=== PATIENT | female | born 1995 | race Caucasian/White ===

== ENCOUNTER → 2019-10-06 14:20 | Outpatient (CLI) | payer OTHER, SELFPAY ==
[2019-10-06 15:50] LABS: Hemoglobin 11.5 g/dL (12.0-16.0)
[2019-10-06 16:05] LABS: GTT (PREG) 1 Hour PP 50gm Dose 124 mg/dL (76-139)
[2019-10-06 16:35] LABS: Thyroid Stimulating Hormone 0.463 uIU/mL (0.47-4.68)
== END ==
PROVIDERS: Referring Provider Family Medicine; Visit Provider Family Medicine
DX: Z34.82 Encounter for supervision of other normal pregnancy, second trimester (principal); Z3A.27 27 weeks gestation of pregnancy
CPT/HCPCS: 36415; 82950; 84443; 85014; 85018

== ENCOUNTER → 2019-12-09 13:43 | Outpatient (CLI) | payer OTHER, SELFPAY | PROVIDERS: Visit Provider Family Medicine | DX: Z34.91 Encounter for supervision of normal pregnancy, unspecified, first trimester (principal); Z3A.36 36 weeks gestation of pregnancy | CPT/HCPCS: 87081 ==

== ENCOUNTER 2020-01-07 20:09 | Inpatient (IN) | payer OTHER, SELFPAY ==
[2020-01-07 23:04] LABS: Add Manual Diff / Slide Review NO; Basophils Absolute Auto 100 /uL (0-100); Basophils Percent Auto 0.6 % (0-2); Eosinophils Absolute Auto 100 /uL (0-450); Eosinophils Percent Auto 0.5 % (2-4); Hematocrit 34.9 % (36-46); Hemoglobin 11.5 g/dL (12.0-16.0); Lymphocytes Absolute Auto 2100 /uL (1100-4500); Lymphocytes Percent Auto 18.2 % (25-40); Mean Corpuscular Volume 84.9 fL (80-100); Monocytes Absolute Auto 600 /uL (0-900); Monocytes Percent Auto 5.4 % (3-14); Neutrophils Absolute Auto 8600 /uL (1500-7000); Neutrophils Percent Auto 75.3 % (50-75); Platelet Count 205 X10^3/uL (150-400); Red Blood Cell Count 4.11 X10^6/uL (4.0-5.2); Red Cell Distribution Width 15.5 % (11.6-14.8); White Blood Cell Count 11.4 X10^3/uL (4.5-11.0)
[2020-01-07 23:24] VITALS: BP 129/60
[2020-01-07 23:45] LABS: COVID19 -Nasal RAPID Negative (Negative)
--- NOTE | 2020-01-08 06:28 | PM.OBHP.1 ---
OB HPI History of Present Condition Chief complaint: NST Narrative: Stephie Lindsay is a 24 year old female G2 para 0 with an estimated due date of 01/04/2020 consistent with LMP in order ultrasound she is now 40 weeks and 4 days gestational age she presented to the center last evening in labor. She was tai regularly uncomfortable 2-3 cm -3 station an 80% effaced. She was admitted to the center for ongoing labor. Before she came into the center she had no fevers chills nausea or vomiting. Patient had no difficulty with loss of fluid rupture membranes bleeding or spotting. Patient excited for . On admission to the center vital signs are stable afebrile and heart tones are category 1. care patient was a late transfer of care at 27 weeks. complications of obesity during with acute weight gain of approximately 25 lb. Patient with a history of infertility with use of Clomid. Patient history of abnormal Pap smear with the normal colposcopy LONNIE 1. labs white blood cell count 11.4 hemoglobin 11.5 34.9 rubella immune TSH within normal limits GC chlamydia negative HIV negative hepatitis-B negative records reviewed for blood work as they were not done at this hospital. Based on medical records they were all reportedly normal. Blood type O-positive antibody screen negative covert negative. Normal 20 week ultrasound. Evaluation Evaluation Laboratory results: Laboratory Tests 01/07/20 01/07/20 01/07/20 22:00 22:00 22:30 WBC 11.4 H RBC 4.11 Hgb 11.5 L Hct 34.9 L MCV 84.9 MCH 28.0 MCHC 33.0 RDW 15.5 H Plt Count 205 Neut % (Auto) 75.3 H Lymph % (Auto) 18.2 L Cross % (Auto) 5.4 Eos % (Auto) 0.5 L Baso % (Auto) 0.6 Neut # (Auto) 8600 H Lymph # (Auto) 2100 Cross # (Auto) 600 Eos # (Auto) 100 Baso # (Auto) 100 COVID-19 PCR Negative Blood Type O Positive Antibody Screen Negative [facility] Medical History Abnormal Pap smear of cervix (Acute ~2019) Blighted ovum (Acute ~2018) Headache (Chronic ~2006) Heavy menstrual period (Chronic ~2016) Infertility associated with anovulation (Acute ~2016) Irregular menstrual cycle (Chronic ~2016) LGSIL (low grade squamous intraepithelial dysplasia) (Acute) Migraine with aura (Acute ~2013) Obesity (Acute) Wears glasses (Chronic) Surgical History Anesthesia (Resolved) H/O wisdom tooth extraction (Acute ~09/2012) History of colposcopy (Acute ~07/09/19) Family History Mother Diabetes mellitus Hypertension Anxiety Kidney stones Father No problems noted. 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)) occupational status: unemployed current occupational exposures/hazards: No Previous occupational history: Childcare Provider/Preschool and [employer] special live needs: No Smoking Status: Never smoker second hand exposure: No alcohol intake: former (pre-) substance use type: does not use Meds Home Medications and Allergies Home Medications Medication Instructions Recorded Confirmed Type prenat.vits,tonie,vas-juob-qmrzg 1 tab PO DAILY 09/29/19 01/07/20 History Allergies Allergy/AdvReac Type Severity Reaction Status Date / Time No Known Drug Allergies Allergy Verified 01/06/20 14:37 Exam Vital Signs (past 8 hours): - 01/07/20 23:24 Blood Pressure 129/60 Narrative Exam Narrative: . General: Alert no apparent distress. Affect is appropriate. Tai it is uncomfortable. HEENT: Neck is supple without lymphadenopathy pupils equal round and reactive. Cardio: S1-S2 regular rate and rhythm. Respiratory: Lungs clear to auscultation. Abdomen: Gravid. Extremities: Normal deep tendon reflexes trace edema. [place]: Tai regularly every 3-5 minutes with 60 minute contractions moderate and strength. heart tones: Category 1 tracing baby at times difficult to monitor due to mother's size Objective Labs Result Diagrams: 01/07/20 22:00 Labs: Laboratory Results - last 24 hr 01/07/20 01/07/20 01/07/20 22:00 22:00 22:30 WBC 11.4 H RBC 4.11 Hgb 11.5 L Hct 34.9 L MCV 84.9 MCH 28.0 MCHC 33.0 RDW 15.5 H Plt Count 205 Neut % (Auto) 75.3 H Lymph % (Auto) 18.2 L Cross % (Auto) 5.4 Eos % (Auto) 0.5 L Baso % (Auto) 0.6 Neut # (Auto) 8600 H Lymph # (Auto) 2100 Cross # (Auto) 600 Eos # (Auto) 100 Baso # (Auto) 100 COVID-19 PCR Negative Blood Type O Positive Antibody Screen Negative Assessment and Plan Assessment and Plan Assessment and Plan narrative: 24-year-old female G2 para 0 at 40 and 4 7th weeks gestational age consistent with LMP and early ultrasound. care complicated by obesity patient in labor. Without rupture of membranes GBS status is negative. Normal 20 week ultrasound blood type O positive. Patient in active labor and tai has made good progress up to this point. Intake OB care orders were written for consents were obtained and signed. Continue with expectant management. Patient is uncomfortable in tai and requesting an epidural which will provide. Due to patient's size mild difficulty with the good heart tracings and may have to use an internal monitor. For monitoring contractions as well as heart rate. May also use some Pitocin as her labor has progressed to 7 cm and now she has been there for an hour 2.
--- NOTE | 2020-01-08 08:33 | PM.OBPNLAB ---
Date/Time Date Patient Seen: 01/08/20 Time Patient Seen: 08:33 Pain Control Pain control: tolerating well and epidural Pelvic Exam Dilation (cm): 7 Effacement (%): 90 station: -2 Amniotic membrane status: Ruptured Contractions Contractions on admission: irregular Monitor mode: Internal Pitocin rate (mU/min): 2 Contraction frequency (min): 5 Contraction pattern: Irregular Status status: Category l Heart Rate Baseline: 134 Assessment and Plan Assessment: active labor Plan: begin patient augmentation Comments: Patient's labor stalled out at 7 cm. Difficult to monitor due to patient's size. IUPC has been placed as well as internal scalp monitor. Ruptured. Afebrile vital signs are stable category 1 tracing. Begin Pitocin augmentation. Will see if patient continues to make good progress has stall in of her contractions. And still at a fairly high station. If patient does not make good progress with adequate contractions will discuss operative delivery.
--- NOTE | 2020-01-08 11:25 | PM.OBPNLAB ---
Date/Time Date Patient Seen: 01/08/20 Time Patient Seen: 11:00 Pain Control Pain control: tolerating well and epidural Pelvic Exam Dilation (cm): 9 Effacement (%): 90 station: -1 Amniotic membrane status: Ruptured Contractions Contractions on admission: regular Monitor mode: Internal Contraction frequency (min): 5 Contraction pattern: Irregular Status status: Category ll Heart Rate Baseline: 140 Monitor Accelerations: Present Monitor Decelerations: Variable Monitor Variability: Moderate Assessment and Plan Assessment: active labor and induction ongoing Plan: continuous present management
--- NOTE | 2020-01-08 13:12 | PM.OBPRVD ---
Events: Labor Augmentation Labor & Delivery Delivery date: 01/08/20 Intrapartal events: None Cervical ripening method: none Induction method: none Delivery augmentation: rupture of membranes and pitocin Delivery monitor: external FHT, external uterine, internal FHT and internal uterine Route of delivery: Episiotomy description: None L&D Laceration Description: None Estimated blood loss (mL): 200 Anesthesia type: Spinal Complications:
[2020-01-08] MEDS: IBUPROFEN 600 MG TABLET PO ×2 (15:24→21:26)
[2020-01-08] MEDS: LANOLIN OINT 7 GM 1 APPLIC TOP (15:28)
[2020-01-08] MEDS: DERMOPLAST SPRAY 20% 60 ML 1 SPRAY TOP (15:28)
[2020-01-08] MEDS: DOCUSATE 100 MG CAPSULE PO (21:27)
[2020-01-09] MEDS: IBUPROFEN 600 MG TABLET PO ×2 (04:11→11:14)
[2020-01-09 06:29] LABS: Hematocrit 28.6 % (36-46); Hemoglobin 9.3 g/dL (12.0-16.0)
--- NOTE | 2020-01-09 07:53 | PM.OBDS.1 ---
Discharge Providers Provider Date of admission: 01/07/20 20:09 Discharge Date: 01/09/20 Primary care physician: Doctor Karson MD Consults: 01/09/20 13:15 Consult to Protective Signal Operator Routine Comment: Discharge provider: Victoriano Haney MD Summary Time Spent with Patient Time attestation: Total time spent providing and/or coordinating discharge services: Objective Labs Result Diagrams: 01/09/20 06:15 Labs: Laboratory Results - last 24 hr 01/09/20 06:15 Hgb 9.3 L Hct 28.6 L Exam Vital Signs (past 8 hours): General: Alert no apparent distress. Affect is appropriate. Tessy it is uncomfortable. HEENT: Neck is supple without lymphadenopathy pupils equal round and reactive. Cardio: S1-S2 regular rate and rhythm. Respiratory: Lungs clear to auscultation. Abdomen: Uterus firm. Incision clean dry and intact. Extremities: Normal deep tendon reflexes trace edema. Discharge Plan Discharge Plan Patient Disposition: Home Discharge orders & Medications Prescriptions: New docusate sodium [DOK] 100 mg Capsule 100 mg PO BID Qty: 30 RF: 0 Prenatabs Rx 29 mg iron- 1 mg Tablet 1 tab PO DAILY Qty: 90 RF: 0 ibuprofen 600 mg Tablet 600 mg PO Q6HR PRN (Reason: Pain, Mild (1-3)) Qty: 30 RF: 0 Discontinued KPN Tablet 1 tab PO DAILY RF: 0 Follow up/Referrals: Doctor Ty MD [Primary Care Provider] - Skin/Wound/Dressing Care Report to your healthcare provider any signs of infection, such as:: chills, fever, increased pain and unusual drainage Visit Report/Discharge Packet Visit Report Forms: Patient Portal/API, Stroke Signs & Symptoms Discharge Data Primary Care Provider: Doctor Karson
[2020-01-09] MEDS: DOCUSATE 100 MG CAPSULE PO (09:01)
[2020-01-09] MEDS: PRENATAL VIT,CALC/IRON/FOLIC 1 TABLET 1 TAB PO (09:01)
[2020-01-09 12:30] VITALS: BP 137/84; PULSE 94; RESP 16; TEMP 37.1
--- NOTE | 2020-01-27 07:29 | P.PCN_ITS ---
Procedures Date/Time Date of procedure: 01/08/20 Time of procedure: 13:32 General Procedure description: Stage I of labor. Approximately 18 hours. Patient during stage I labor came in tai and made good clinical progress throughout the evening and material scheduler hours. She got about 6 7 cm in her labor slow down installed in her pain was uncomfortable. Patient requested an epidural. Due to patient's size is difficult to provide external monitoring so internal monitoring was done a scalp electrode as well as IUPC. At that point Pitocin was started. Patient made gradual progression after that point with adequate contractions and became complete. During stage I of labor her category 1 mostly in some category 2 tracings. She had rupture of membranes with clear fluid. Stage II of labor. Approximately 45 minutes. Patient pushed to complete the viable infant. In the vertex position. The delivery of the head and shoulders. Baby was placed on mother's abdomen without difficulty. During stage II there is category 2 tracing. Baby came out vigorous and active. Cord was then cut and transected which was three-vessel. Stage III of labor approximately 15 minutes delivery of intact placenta with three-vessel cord. Mild bleeding approximately 200 cc of blood loss. Afterwards mom was resting comfortably. There is no signs cervical lacerations there is mild perineal laceration which was not repaired.
== END 2020-01-09 13:35 | disposition home or self-care (01) | DRG 807 ==
PROVIDERS: Family Medicine; Admitting Provider Obstetrics & Gynecology; Referring Provider Obstetrics & Gynecology; Visit Provider Obstetrics & Gynecology
DX: O48.0 Post-term pregnancy (principal); Z37.0 Single live birth; O99.214 Obesity complicating childbirth; Z11.59 Encounter for screening for other viral diseases; Z3A.40 40 weeks gestation of pregnancy; O62.1 Secondary uterine inertia
CPT/HCPCS: 01967; 36415; 59050; 59410; 85014; 85018; 85025; 86850; 86900; 86901; 87635; G0379

== ENCOUNTER → 2020-08-17 14:51 | Outpatient (CLI) | payer OTHER, SELFPAY ==
[2020-08-17 17:42] LABS: Thyroid Stimulating Hormone 0.547 uIU/mL (0.47-4.68)
== END ==
PROVIDERS: Referring Provider Family Medicine; Visit Provider Family Medicine
DX: F39 Unspecified mood [affective] disorder (principal)
CPT/HCPCS: 36415; 84443

== ENCOUNTER → 2020-11-25 09:39 | Outpatient (CLI) | payer OTHER, SELFPAY ==
[2020-11-25 10:05] LABS: COVID19 -Nasal RAPID Negative (Negative)
== END ==
PROVIDERS: PCP Family Medicine; Visit Provider Nurse Practitioner
DX: Z20.822 Contact with and (suspected) exposure to COVID-19 (principal); R50.9 Fever, unspecified; R52 Pain, unspecified
CPT/HCPCS: 87635

== ENCOUNTER → 2020-12-06 11:09 | Outpatient (CLI) | payer OTHER, SELFPAY ==
[2020-12-06 14:54] LABS: COVID19 -Nasal RAPID Negative (Negative)
== END ==
PROVIDERS: PCP Family Medicine; Referring Provider Physician Assistant; Visit Provider Physician Assistant
DX: Z20.822 Contact with and (suspected) exposure to COVID-19 (principal); J02.9 Acute pharyngitis, unspecified
CPT/HCPCS: 87635

== ENCOUNTER → 2020-12-09 10:56 | Outpatient (CLI) | payer OTHER, SELFPAY ==
[2020-12-09 13:50] LABS: COVID19 -Nasal RAPID Negative (Negative)
== END ==
PROVIDERS: PCP Family Medicine; Visit Provider Nurse Practitioner
DX: Z20.822 Contact with and (suspected) exposure to COVID-19 (principal)
CPT/HCPCS: 87635

== ENCOUNTER → 2020-12-15 10:37 | Outpatient (CLI) | payer OTHER, SELFPAY ==
[2020-12-15 14:22] LABS: COVID19 -Nasal RAPID Negative (Negative)
== END ==
PROVIDERS: PCP Family Medicine; Visit Provider Physician Assistant
DX: Z20.822 Contact with and (suspected) exposure to COVID-19 (principal)
CPT/HCPCS: 87635

== ENCOUNTER → 2021-01-13 09:35 | Outpatient (CLI) | payer OTHER, SELFPAY | PROVIDERS: PCP Family Medicine; Visit Provider Nurse Practitioner | DX: R05.9 Cough, unspecified (principal); R50.9 Fever, unspecified; R52 Pain, unspecified | CPT/HCPCS: 87635 ==

== ENCOUNTER → 2021-02-14 09:37 | Outpatient (CLI) | payer OTHER, SELFPAY ==
[2021-02-14 14:46] LABS: COVID19 -Nasal RAPID Negative (Negative)
== END ==
PROVIDERS: PCP Family Medicine; Visit Provider Physician Assistant
DX: Z20.822 Contact with and (suspected) exposure to COVID-19 (principal); Z01.812 Encounter for preprocedural laboratory examination
CPT/HCPCS: 87635

== ENCOUNTER → 2021-02-16 12:12 | Outpatient (CLI) | payer OTHER, SELFPAY ==
[2021-02-16 14:13] LABS: COVID19 -Nasal RAPID POSITIVE (Negative)
== END ==
PROVIDERS: PCP Family Medicine; Visit Provider Physician Assistant
DX: U07.1 COVID-19 (principal)
CPT/HCPCS: 87635

== ENCOUNTER → 2021-03-18 15:16 | Outpatient (CLI) | payer OTHER, SELFPAY | PROVIDERS: PCP Family Medicine; Referring Provider Internal Medicine; Visit Provider Internal Medicine | DX: Z23 Encounter for immunization (principal) | CPT/HCPCS: 90471; 90686 ==

== ENCOUNTER → 2021-09-21 07:16 | Outpatient (CLI) | payer OTHER, SELFPAY ==
--- NOTE | 2021-09-21 07:17 | DI.CT.S_ITS ---
PROCEDURE: CT HEAD/BRAIN WO/W CON INDICATIONS: Migraines w/aura; new sxs facial drooping, fatigue TECHNIQUE: 4.5 mm thick angled axial sections acquired from the foramen magnum to the vertex before and after the administration of intravenous contrast, with coronal and sagittal reformats. For radiation dose reduction, the following was used: automated exposure control, adjustment of mA and/or kV according to patient size. COMPARISON: None. FINDINGS: Image quality: Excellent. CSF Spaces: Basal cisterns are patent. No extra-axial fluid collections. Ventricles are normal in size and shape. Brain: No midline shift. No intracranial bleeds or masses. No abnormal intracranial enhancement. Wisdom-white interface appears normal. Skull and face: Calvarium and visualized facial bones appear intact, without suspicious lesions. Sinuses: Visualized sinuses and mastoids are clear. IMPRESSION: 1. No acute intracranial process. Dictated by: Nancy Hayward M.D. on 09/21/2021 at 8:07 Approved by: Nancy Hayward M.D. on 09/21/2021 at 8:08
== END ==
PROVIDERS: PCP Family Medicine; Referring Provider Physician Assistant; Visit Provider Physician Assistant
DX: G43.109 Migraine with aura, not intractable, without status migrainosus (principal)
CPT/HCPCS: 70470

== ENCOUNTER → 2021-10-07 15:43 | Outpatient (CLI) | payer OTHER, SELFPAY ==
[2021-10-07 16:08] LABS: COVID19 -Nasal RAPID POSITIVE (Negative)
== END ==
PROVIDERS: PCP Family Medicine; Visit Provider Physician Assistant
DX: U07.1 COVID-19 (principal)
CPT/HCPCS: 87635

== ENCOUNTER → 2021-10-07 16:08 | Outpatient (CLI) | payer OTHER, SELFPAY ==
--- NOTE | 2021-10-07 16:12 | DI.RAD.S_ITS ---
PROCEDURE: XR CHEST 2V INDICATIONS: Persistent cough; chest congestion; hx of pneumonia TECHNIQUE: 2 views of the chest were acquired. COMPARISON: None. FINDINGS: Surgical changes and devices: None. Lungs and pleura: Lungs are clear. No pleural effusions or pneumothorax. Mediastinum: Mediastinal contours are normal. Heart size is normal. Bones and chest wall: No suspicious bony abnormalities. Soft tissues appear unremarkable. IMPRESSION: No acute cardiopulmonary process demonstrated radiographically. Dictated by: Victoriano Mcmahon M.D. on 10/07/2021 at 16:20 Approved by: Victoriano Mcmahon M.D. on 10/07/2021 at 16:25
== END ==
PROVIDERS: PCP Family Medicine; Referring Provider Physician Assistant; Visit Provider Physician Assistant
DX: R05.9 Cough, unspecified (principal); U07.1 COVID-19
CPT/HCPCS: 71046; 87635

== ENCOUNTER 2022-03-06 19:03 | Emergency (ER) | payer OTHER, SELFPAY ==
[2022-03-06 19:12] VITALS: BP 128/70; PULSE 91; RESP 18; TEMP 36.7; O2SAT 95; BMI 47.6
[2022-03-06] MEDS: ONDANSETRON 4 MG/2 ML INJ IV (21:08)
[2022-03-06 21:11] LABS: Add Manual Diff / Slide Review NO; Basophils Absolute Auto 0 /uL (0-100); Basophils Percent Auto 0.4 % (0-2); Eosinophils Absolute Auto 100 /uL (0-450); Eosinophils Percent Auto 1.1 % (2-4); Hematocrit 39.5 % (36-46); Hemoglobin 13.3 g/dL (12.0-16.0); Lymphocytes Absolute Auto 1100 /uL (1100-4500); Lymphocytes Percent Auto 15.9 % (25-40); Mean Corpuscular HGB Conc 33.5 % (30-36); Mean Corpuscular Hemoglobin 29.1 PG (26-34); Mean Corpuscular Volume 86.9 fL (80-100); Monocytes Absolute Auto 400 /uL (0-900); Monocytes Percent Auto 6.2 % (3-14); Neutrophils Absolute Auto 5500 /uL (1500-7000); Neutrophils Percent Auto 76.4 % (50-75); Platelet Count 218 X10^3/uL (150-400); Red Blood Cell Count 4.55 X10^6/uL (4.0-5.2); Red Cell Distribution Width 13.4 % (11.6-14.8); White Blood Cell Count 7.2 X10^3/uL (4.5-11.0)
[2022-03-06] MEDS: KETOROLAC 30 MG/ML VIAL 15 MG IV (21:16)
--- NOTE | 2022-03-06 21:16 | DI.CT.S_ITS ---
PROCEDURE: CT KIDNEY URETER BLADDER (KUB) INDICATIONS: L flank pain, radiates around, colicky, stone? TECHNIQUE: Axial sections were acquired from the lung bases to the pubic symphysis. Coronal and sagittal reformats were performed. For radiation dose reduction, the following was used: automated exposure control, adjustment of mA and/or kV according to patient size. COMPARISON: None. FINDINGS: Image quality: Excellent. Lung bases: There is minimal atelectasis. Heart: Heart is normal in size. URINARY: Right Kidney and Ureter: No discrete stones or hydronephrosis. No hydroureter. Left Kidney and Ureter: There is a punctate nonobstructing left renal stone. No hydronephrosis. No hydroureter. Bladder: Normal wall thickness. No stones. ABDOMEN: Liver: Noncontrast evaluation of the liver demonstrates no discrete mass. Gallbladder: There are isoattenuating filling defects within the gallbladder suggestive of biliary sludge or noncalcified gallstones. No gallbladder wall thickening or pericholecystic fluid. Biliary ducts: No biliary ductal dilatation. Pancreas: Unremarkable. Spleen: Normal in size. Adrenal Glands: No adrenal nodules. Stomach and Bowel: Stomach, small bowel loops, and colon are normal in caliber and wall thickness. No pericecal inflammatory changes to suggest appendicitis. No evidence of diverticulitis. Peritoneum: No abnormal intraperitoneal fluid. No free air. Ventral Wall: No hernia. Abdominal Nodes: No retroperitoneal or mesenteric adenopathy by size criteria. Vessels: Aorta and inferior vena cava are normal in size. PELVIS: Pelvic Organs: Unremarkable. Pelvic Nodes: No enlarged lymph nodes. Miscellaneous: No inguinal hernias identified. Bones: Visualized osseous structures demonstrate no suspicious focal lesions. IMPRESSION: 1. No evidence of obstructive uropathy. 2. Punctate nonobstructing left renal stone. 3. No evidence of diverticulitis. Dictated by: Wang Valle M.D. on 03/06/2022 at 23:27 Approved by: Wang Valle M.D. on 03/06/2022 at 23:29
--- NOTE | 2022-03-06 21:18 | ED_ITS ---
HPI - Abdominal Pain General Chief Complaint: Abdominal Pain Stated Complaint: Left flank pain Time Seen by Provider: 03/06/22 19:11 Source: patient Mode of arrival: Ambulatory History of Present Illness HPI narrative: 27F nonsmoker without significant chronic medical history presents with relatively sudden onset left flank pain over the course of the day. She states the pain in her left flank is persistent but she has episodes of increasing pain and even radiation of pain around her side without obvious provocation or palliation. She had had some urinary symptoms and thought maybe she had a UTI such as burning and frequency. She is not dizzy nor weak or lightheaded. She denies any fever or chills. She denies chest pain, shortness of breath or cough. She has had some episodes of loose stool. She denies vaginal bleeding or discharge Related Data Previous Rx's Medication Instructions Recorded hydroxyzine HCl 25 mg tablet 25 mg PO QID PRN anxiety #20 tabs 02/07/21 estradiol-dienogest 3 mg/2 mg-2 1 tab PO DAILY #84 tabs 07/14/21 mg/2 mg-3 mg/1 mg tablet (Natazia) sumatriptan succinate 50 mg tablet See Rx Instructions PO .COMPLEX 09/01/21 #10 tabs albuterol sulfate 90 mcg/actuation 2 puff inhalation Q4-6H PRN 10/11/21 aerosol inhaler shortness of breath or wheezing #8.5 grams citalopram 40 mg tablet 40 mg PO DAILY #90 tabs 11/14/21 ketorolac 10 mg tablet 10 mg PO Q6H PRN pain #14 tabs 03/06/22 ondansetron 4 mg disintegrating 4 mg PO TID-QID PRN nausea and 03/06/22 tablet vomiting #10 tabs Allergies Allergy/AdvReac Type Severity Reaction Status Date / Time No Known Drug Allergies Allergy Verified 03/06/22 19:12 Review of Systems Review of Systems Narrative: GENERAL: See HPI HEENT: Denies sinus pain, ear pain, sore throat, difficulty swallowing, dizziness. RESPIRATORY: Denies dyspnea, cough, wheezing, hemoptysis, sputum. CARDIOVASCULAR: Denies chest pain, palpitations, orthopnea, edema, GASTROINTESTINAL: See HPI : See HPI MUSCULOSKELETAL: denies weakness, joint pain, or bony pain SKIN: Denies rash, skin lesions, or other NEUROLOGIC: Denies weakness, headache, numbness, change in speech, confusion, seizures, incoordination. PSYCHIATRIC: No concerning psychosocial issues. 12 point review of systems is negative except for those stated above Patient History Medical History Abnormal Pap smear of cervix (~2019) Blighted ovum (~2018) Cervical somatic dysfunction Chronic neck pain Chronic right-sided low back pain without sciatica Cranial somatic dysfunction Headache (~2006) Heavy menstrual period (~2016) Infertility associated with anovulation (~2016) Irregular menstrual cycle (~2016) LGSIL (low grade squamous intraepithelial dysplasia) Lumbar region somatic dysfunction Migraine with aura (~2013) Mood disorder Obesity Pelvic somatic dysfunction Sacral region somatic dysfunction Segmental and somatic dysfunction of abdomen and other regions Thoracic region somatic dysfunction Wears glasses Surgical History Anesthesia H/O wisdom tooth extraction (~09/2012) History of colposcopy (~07/09/19) Family History Mother Diabetes mellitus Hypertension Anxiety Kidney stones Father No problems noted. Grandfather Diabetes mellitus Hypertension Myocardial infarction Status post cardiac surgery Grandmother Dementia Migraines Hyperlipidemia Hypertension Grandfather Known health problems: none Grandmother Hyperlipidemia Social History marital status: unmarried,living together household members: significant other education level: college occupational status: unemployed current occupational exposures/hazards: No Previous occupational history: Childcare Provider/Preschool and [employer] special live needs: No Smoking Status: Never smoker second hand exposure: No alcohol intake: former substance use type: does not use Smoking Status: Never smoker Exam Narrative Exam Narrative: GENERAL: [27] year old patient appears stated age. Well-developed patient, in mild distress. Obviously uncomfortable, sitting in her cart rocking back and forth and rubbing her left flank HEAD: Atraumatic. Normocephalic. EYES: Pupils equal round and reactive. Extraocular motions intact. No scleral icterus. No injection or drainage. ENT: Nose without bleeding, purulent drainage. Throat without erythema, tonsillar hypertrophy or exudate. Airway patent. NECK: Trachea midline. Non tender CARDIOVASCULAR: Regular rate and rhythm without murmurs, gallops, or rubs. RESPIRATORY: Clear to auscultation. Breath sounds equal bilaterally. No wheezes, rales, or rhonchi. GASTROINTESTINAL: Abdomen soft, non-tender, nondistended. EXTREMITIES: No edema or joint tenderness. BACK: Nontender without deformity or crepitance. No flank tenderness. NEURO: AOx3. SKIN: No rash or erythema of visible areas Initial Vital Signs Initial Vital Signs: Vital Signs Temperature 98.0 F 03/06/22 19:12 Pulse Rate 91 H 03/06/22 19:12 Respiratory Rate 18 03/06/22 19:12 Blood Pressure 128/70 03/06/22 19:12 Pulse Oximetry 95 03/06/22 19:12 Oxygen Delivery Method 03/06/22 19:12 Course Orders Ordered: ED Orders 03/06/22 21:00 Complete Blood Count AUTO DIFF Stat Comprehensive Metabolic Panel Stat Lipase Stat 03/06/22 21:16 CT kidney ureter bladder (KUB) Stat Discontinued Medications Sodium Chloride (Normal Saline 0.9%) 1,000 mls @ 1,000 mls/hr IV BOLUS ONE Stop: 03/06/22 22:19 Last Infusion: 03/06/22 22:14 Dose: 0 mls/hr Documented By: Admin: 03/06/22 21:21 Dose: 1,000 mls/hr Documented By: NAVEEN Ketorolac Tromethamine (Ketorolac 30 Mg/Ml Vial) 15 mg IV NOW ONE Stop: 03/06/22 21:14 Last Admin: 03/06/22 21:16 Dose: 15 mg Documented By: NAVEEN Ondansetron HCl (Ondansetron 4 Mg Odt) 4 mg PO NOW ONE Stop: 03/06/22 20:50 Last Admin: 03/06/22 21:05 Dose: Not Given Documented By: NAVEEN Ondansetron HCl (Ondansetron 4 Mg/2 Ml Inj) 4 mg IV NOW ONE Stop: 03/06/22 20:50 Last Admin: 03/06/22 21:08 Dose: 4 mg Documented By: NAVEEN Ondansetron HCl (Ondansetron 4 Mg Odt Prepack) 1 bottle MISC SEEINSTR ONE Stop: 03/06/22 23:50 Last Admin: 03/06/22 23:59 Dose: 1 bottle Documented By: DOROTHEA Vital Signs Vital signs: Vital Signs - 8 hr 03/06/22 19:12 03/06/22 23:18 Temperature 98.0 F Pulse Rate 91 H 76 Respiratory Rate 18 16 Blood Pressure 128/70 119/77 Pulse Oximetry 95 96 Oxygen Delivery Method Room Air Room Air MDM - Abdominal Pain Lab Data Result diagrams: 03/06/22 21:00 03/06/22 21:00 Labs: Lab Results 03/06/22 03/06/22 Range/Units 21:00 21:00 WBC 7.2 (4.5-11.0) X10^3/uL RBC 4.55 (4.0-5.2) X10^6/uL Hgb 13.3 (12.0-16.0) g/dL Hct 39.5 (36-46) % MCV 86.9 (80-100) fL MCH 29.1 (26-34) PG MCHC 33.5 (30-36) % RDW 13.4 (11.6-14.8) % Plt Count 218 (150-400) X10^3/uL Neut % (Auto) 76.4 H (50-75) % Lymph % (Auto) 15.9 L (25-40) % [place] % (Auto) 6.2 (3-14) % Eos % (Auto) 1.1 L (2-4) % Baso % (Auto) 0.4 (0-2) % Neut # (Auto) 5500 (2201-7199) /uL Lymph # (Auto) 1100 (2508-8513) /uL [place] # (Auto) 400 (0-900) /uL Eos # (Auto) 100 (0-450) /uL Baso # (Auto) 0 (0-100) /uL Sodium 137 (137-145) mmol/L Potassium 3.9 (3.4-5.1) mmol/L Chloride 105 (98-107) mmol/L Carbon Dioxide 23 (22-32) mmol/L BUN 13 (7-17) mg/dL Creatinine 0.62 (0.52-1.04) mg/dL Estimated GFR > 60 (>60) mL/min BUN/Creatinine Ratio 21.0 (6-22) Glucose 93 (70-100) mg/dL Calcium 8.9 (8.4-10.2) mg/dL Total Bilirubin 0.3 (0.2-1.3) mg/dL AST 19 (14-36) IU/L ALT 21 (<35) IU/L Alkaline Phosphatase 78 (38-126) U/L Total Protein 7.8 (6.3-8.2) g/dL Albumin 4.1 (3.5-5.0) g/dL Globulin 3.7 (1.7-4.1) g/dL Albumin/Globulin Ratio 1.1 (1.0-2.8) Lipase 114 (23-300) U/L Point of care testing: Point of Care Testing Test Results Negative Urine Dip Bedside Urine Glucose Negative Bedside Urine Bilirubin - Negative Bedside Urine Ketone - Negative Urine Specific [place] 1.030 Bedside Urine Occult Blood - Negative Bedside Urine pH 6.0 Bedside Urine Protein - Negative Bedside Urine Urobilinogen - Negative Bedside Urine Nitrite - Negative Bedside Urine Leukocytes - Negative Esterase Imaging Data CT scan - abdomen/pelvis: Radiologist's Impression: [place]phie [place] ESPERANZA??27??F??1995 ? Allergy/Adv: No Known Drug Allergies (More??) Close Abdomen/Pelvis CT (Signed) Wang Valle - 03/06/22 Chest X-Ray (Signed) Victoriano Mcmahon - 10/07/[address] (Signed) Nancy Hayward - 09/21/21 [facility] [address] CT Scan Report Signed Patient: Stephie Romero ESPERANZA MR#: [id number] : 1995 Acct:[id number] Age/Sex: 27 / F Date of Service: 03/06/22 Loc: ED Accession Number: [id number] ?? Procedure: CT kidney ureter bladder (KUB) Ordering Provider: Shar Calderon D.O. PROCEDURE:? CT KIDNEY URETER BLADDER (KUB) ? INDICATIONS:? L flank pain, radiates around, colicky, stone? ? TECHNIQUE:? Axial sections were acquired from the lung bases to the pubic symphysis.? Coronal and sagittal reformats were performed.? For radiation dose reduction, the following was used: ?automated exposure control, adjustment of mA and/or kV according to patient size.? ? COMPARISON:? None. ? FINDINGS:? Image quality:? Excellent.? ? Lung bases:? There is minimal atelectasis.? ? Heart:? Heart is normal in size. ? URINARY: Right Kidney and Ureter: ? No discrete stones or hydronephrosis.? No hydroureter.? ? Left Kidney and Ureter: ? There is a punctate nonobstructing left renal stone.? No hydronephrosis.? No hydroureter. ? Bladder:? Normal wall thickness. No stones. ? ? ? ABDOMEN: Liver:? Noncontrast evaluation of the liver demonstrates no discrete? mass. Gallbladder:? There are isoattenuating filling defects within the gallbladder suggestive of biliary sludge or noncalcified gallstones.? No gallbladder wall thickening or pericholecystic fluid. Biliary ducts:? No biliary ductal dilatation.? ? Pancreas:? Unremarkable.? ? Spleen:? Normal in size.? ? Adrenal Glands:? No adrenal nodules.? ? ? Stomach and Bowel:? Stomach, small bowel loops, and colon are normal in caliber and wall thickness.? No pericecal inflammatory changes to suggest appendicitis.? No evidence of diverticulitis.? Peritoneum:? No abnormal intraperitoneal fluid.? No free air.? ? Ventral Wall: ? No hernia.? Abdominal Nodes:? No retroperitoneal or mesenteric adenopathy by size criteria.? Vessels:? Aorta and inferior vena cava are normal in size.? ? PELVIS: Pelvic Organs:? Unremarkable.? ? Pelvic Nodes: No enlarged lymph nodes.? Miscellaneous: No inguinal hernias identified. ? ? ? Bones:? Visualized osseous structures demonstrate no suspicious focal lesions. IMPRESSION:? ? 1. No evidence of obstructive uropathy. ? 2. Punctate nonobstructing left renal stone. ? 3. No evidence of diverticulitis. ? Dictated by: Wang Valle M.D. on 03/06/2022 at 23:27 ? ? Approved by: Wang Valle M.D. on 03/06/2022 at 23:29 ? MDM Narrative Medical decision making narrative: Multiple etiologies for patient's symptoms considered include, but not limited to: [Bowel obstruction versus kidney stone versus diverticulitis versus pyelonephritis versus other Patient's symptoms improved over duration of stay with above-stated therapies. History, physical exam, labs, imaging, and response to therapies have been reassuring. Findings and discharge diagnosis discussed with patient/family followed by ve rbalization of understanding Return precautions discussed with patient/family whom verbalize understanding. Pain has been well controlled and patient is tolerating oral hydration. Discharge Plan Departure Patient Disposition: Home Clinical Impression: Acute flank pain Instructions: DI for Flank Pain Activity Restrictions/Additional Instructions: *You have been diagnosed with [left flank pain. As we discussed your urine shows no sign of infection or blood, your lab work is reassuring and CT scan does not show any catastrophic findings. It seems likely that maybe you passed a kidney stone given the nature of your pain but it is unclear based on our evaluation today. *What to do: *Please continue to take your regular medications as directed. [x] prescription sent to [facility] in [place] *Please follow up with your primary care provider in 2-3 days, call for an appointment. Let them know you were seen in the Emergency Department and that we ask that you be seen in follow up. We will electronically transmit a record of today's note if your PCP is in our system *Return to Emergency Department if you should have any new, worsening or concerning symptoms, such as [fever greater than 101 F, shaking chills, worsening pain, persistent vomiting or other bothersome symptoms] Prescriptions: New ketorolac 10 mg tablet 10 mg PO Q6H PRN (Reason: pain) Qty: 14 0RF ondansetron 4 mg tablet,disintegrating 4 mg PO TID-QID PRN (Reason: nausea and vomiting) Qty: 10 0RF No Action sumatriptan succinate 50 mg tablet See Rx Instructions PO .COMPLEX Qty: 10 3RF Rx Instructions: take 1 tab at onset of headache; if no relief may repeat 1 tab after at least 2 hrs; max = 4 tabs/24 hr PO citalopram 40 mg tablet 40 mg PO DAILY Qty: 90 3RF hydroxyzine HCl 25 mg tablet 25 mg PO QID PRN (Reason: anxiety) Qty: 20 1RF Natazia 3 mg/2 mg-2 mg/ 2 mg-3 mg/1 mg tablet 1 tab PO DAILY Qty: 84 3RF albuterol sulfate 90 mcg/actuation HFA aerosol inhaler 2 puff inhalation Q4-6H PRN (Reason: shortness of breath or wheezing) Qty: 8.5 0RF Referrals: Victoriano Haney MD [Primary Care Provider] - Stand Alone Forms: Work Release Note Visit Report Forms: Patient Portal/API
[2022-03-06] MEDS: SODIUM CHLORIDE 0.9% 1,000 ML 1000 ML IV (21:21)
[2022-03-06 21:33] LABS: Alanine Aminotransferase 21 IU/L (<35); Albumin 4.1 g/dL (3.5-5.0); Albumin Globulin Ratio 1.1 (1.0-2.8); Alkaline Phosphatase 78 U/L (38-126); Aspartate Aminotransferase 19 IU/L (14-36); Bilirubin Total 0.3 mg/dL (0.2-1.3); Blood Urea Nitrogen 13 mg/dL (7-17); Calcium 8.9 mg/dL (8.4-10.2); Carbon Dioxide 23 mmol/L (22-32); Chloride 105 mmol/L (98-107); Estimated Glomerular Filt Rate > 60 mL/min (>60); Globulin 3.7 g/dL (1.7-4.1); Glucose 93 mg/dL (70-100); HEMOLYSIS 25 (0-50); Lipase 114 U/L (23-300); Potassium 3.9 mmol/L (3.4-5.1); Sodium 137 mmol/L (137-145); Total Protein 7.8 g/dL (6.3-8.2)
[2022-03-06 23:18] VITALS: BP 119/77; PULSE 76; RESP 16; O2SAT 96
[2022-03-06] MEDS: ONDANSETRON 4 MG ODT PREPACK 1 BOTTLE MISC (23:59)
== END 2022-03-07 00:06 | disposition home or self-care (01) ==
PROVIDERS: Emergency Provider Emergency Medicine; PCP Family Medicine
DX: R10.9 Unspecified abdominal pain (principal)
CPT/HCPCS: 36415; 74176; 80053; 81003; 81025; 83690; 85025; 96361; 96374; 96375; 99284; J1885; J2405

== ENCOUNTER → 2022-03-22 13:58 | Outpatient (CLI) | payer OTHER, SELFPAY | PROVIDERS: PCP Family Medicine; Referring Provider Internal Medicine; Visit Provider Internal Medicine | DX: Z23 Encounter for immunization (principal) | CPT/HCPCS: 90471; 90686 ==

== ENCOUNTER → 2022-05-12 16:38 | Outpatient (CLI) | payer OTHER, SELFPAY ==
[2022-05-12 19:00] LABS: Influenza A - CEPHEID Flu A NEGATIVE (NEGATIVE); Influenza B - CEPHEID Flu B NEGATIVE (NEGATIVE); Respiratory Syncytial Virus Negative (Negative)
[2022-05-12 19:17] LABS: COVID-19 CEPHEID 4-PLEX PCR Negative (Negative)
== END ==
PROVIDERS: PCP Family Medicine; Visit Provider Family Medicine
DX: J02.9 Acute pharyngitis, unspecified (principal); Z20.822 Contact with and (suspected) exposure to COVID-19
CPT/HCPCS: 0241U; 87070

== ENCOUNTER → 2022-06-06 06:38 | Outpatient (CLI) | payer OTHER, MEDICAID, SELFPAY ==
--- NOTE | 2022-06-06 06:40 | DI.US.S_ITS ---
PROCEDURE: US PELVIC COMPLETE INDICATIONS: PAINFUL PERIODS TECHNIQUE: Real-time scanning was performed of the pelvic organs, with image documentation. Additional endovaginal scanning was necessary due to incomplete visualization of the adnexal and endometrial structures by transabdominal scanning. COMPARISON: None. FINDINGS: Uterus: Uterus is anteverted and normal in size at 8.0 x 4.0 x 4.5 cm. The myometrium is homogeneous. The endometrium measures 10 mm combined thickness. Ovaries: The right ovary measures 2.0 x 3.0 x 2.3 cm, with a calculated ovarian volume of 7 cc. The left ovary measures 2.3 x 2.2 x 2.7 cm, with a calculated ovarian volume of 7 cc. The ovaries have a normal sonographic appearance. Greater than 12 follicles can be seen in each ovary. No adnexal masses are seen. Other: No pathologic free abdominal or pelvic fluid. IMPRESSION: Greater than 12 follicles per ovary, consistent with patient's history of PCOS. Otherwise, normal pelvic ultrasound. We strive to produce accurate, complete, and clear reports of imaging services. To assist us in improving patient care, this report was composed using standard report templates and voice recognition software. Therefore, it may contain abnormal punctuation, insertions and/or omissions. Occasional wrong-word or sound-alike substitutions may occur. Though we review the report and make efforts to correct it, we do recommend that the report be read carefully in proper context to recognize any text inaccuracies. Dictated by: Edgardo Gustafson M.D. on 06/06/2022 at 10:39 Approved by: Edgardo Gustafson M.D. on 06/06/2022 at 10:42
== END ==
PROVIDERS: PCP Family Medicine; Referring Provider Family Medicine; Visit Provider Family Medicine
DX: E28.2 Polycystic ovarian syndrome (principal)
CPT/HCPCS: 76830; 76856

== ENCOUNTER 2022-09-11 11:25 | Day surgery (SDC) | payer OTHER, MEDICAID, SELFPAY ==
[2022-09-06 10:26] VITALS: BMI 49.7
[2022-09-11] VITALS (12 sets, daily range): BP systolic 105–154; BP diastolic 51–95; PULSE 74–97; RESP 11–18; TEMP 36.2–37.1; O2SAT 95–100; BMI 49.7
[2022-09-11] MEDS: LACTATED RINGERS 1,000 ML 42 ML IV (12:19)
--- NOTE | 2022-09-11 13:10 | PM.PREOP ---
Pre-operative Note COVID-19 COVID-19 status: Not tested Criteria for continued procedure: Non-surgical alternatives not available or appropriate per current SOC Interval Note History & Physical reviewed/Exam performed by Physician: Yes Changes to H&P: No
[2022-09-11] MEDS: CEFAZOLIN 2 GM/100 ML PREMIX 100 ML IV (13:42)
[2022-09-11] MEDS: ACETAMINOPHEN IV 1,000 MG/100 ML VIAL 400 MG IV (14:00)
--- NOTE | 2022-09-11 14:46 | SUR.OPER ---
Lithotomy on padded OR bed. [place] Pad Positioner under torso. Head on pillow, arms padded and tucked at sides. Legs secured in padded yellow fins stirrups.
[2022-09-11] MEDS: SCOPOLAMINE 1 PATCH TOP (15:35)
[2022-09-11] MEDS: BUPIVACAINE 0.5% (PF) 30 ML, EPINEPHrine 0.15 MG INJ (15:42)
[2022-09-11] MEDS: ONDANSETRON 4 MG/2 ML INJ IV (15:56)
[2022-09-11] MEDS: HYDROMORPHONE 2 MG INJ IV (16:10)
--- NOTE | 2022-09-11 16:13 | PM.GYNOP.1 ---
Operative Date/Time/Diagnoses Date of procedure: 09/11/22 Time of procedure: 13:50 Pre-op diagnosis: Menorrhagia Dysmenorrhea Post-op diagnosis: same Procedure & Clinicians Procedure: Procedures Operation Date: 09/11/22 13:15 Actual Procedure Side Surgeon p LAPAROSCOPY-ATTEMPTED Haresh Sneed MD Indications: Stephie is a 27-year-old , LMP 06/21 - 06/24/2022 who presents today in referral from her primary care provider for evaluation of the aforementioned complaints.? Patient experienced menarche at age 11-12 years of age and her periods have always been heavy.? They became painful when she was in her mid teens and she was initiated on oral contraceptives at that time.? The control pills improve irregularity of her cycles, positively affected the pain, and her periods were much compilation clerk.? In 2017 she came off control pills attempting to become and require ovulation induction with Clomid to become .? Her 1st and did Meaghan blighted ovum but her 2nd resulted spontaneous vaginal delivery in January of 2020.? She went back on control pills and her periods were improved until about 2 or 3 months ago when she started having breakthrough bleeding with clotting and black discharge.? Pelvic ultrasound performed 06/06/2022 shows: PROCEDURE:? US PELVIC COMPLETE ? INDICATIONS:? PAINFUL PERIODS ? TECHNIQUE:? Real-time scanning was performed of the pelvic organs, with image documentation.? Additional endovaginal scanning was necessary due to incomplete visualization of the adnexal and endometrial structures by transabdominal scanning.? ? COMPARISON:? None. ? FINDINGS:? ?? Uterus:? Uterus is anteverted and normal in size at 8.0 x 4.0 x 4.5 cm. The myometrium is homogeneous. ? The endometrium measures 10 mm combined thickness.? ? Ovaries:? The right ovary measures 2.0 x 3.0 x 2.3 cm, with a calculated ovarian volume of 7 cc. The left ovary measures 2.3 x 2.2 x 2.7 cm, with a calculated ovarian volume of 7 cc. The ovaries have a normal sonographic appearance.? Greater than 12 follicles can be seen in each ovary.? No adnexal masses are seen. ? Other:? No pathologic free abdominal or pelvic fluid.? ? IMPRESSION:? Greater than 12 follicles per ovary, consistent with patient's history of PCOS.? Otherwise, normal pelvic ultrasound. Her most recent Pap was in February 2020 and was negative.? Endometrial sampling performed 07/04/2022 shows only late secretory endometrium without atypia, hyperplasia, or neoplasia. Potential causes, and options for further evaluation/treatment of menorrhagia discussed at length.? Patient does not wish to consider IUD because several family used IUDs and had problems/complications with them.? Written information provided regarding Mirena IUD however.? Also discussed was endometrial ablation with concomitant sterilization by laparoscopic bilateral salpingectomy.? Finally we discussed the option of hysterectomy with bilateral salpingectomy and ovarian preservation.? Patient is absolutely certain that she does not wish to have more children.? After consideration of all options, the patient has decided to proceed with total laparoscopic hysterectomy and bilateral salpingectomy.? She presents today for her scheduled surgery. Surgeon: Haresh Sneed Power House Engineer: Miguelina Stern Anesthesia Type: General Operative Notes Findings: Due to the thickness of the abdominal wall, entry into the abdominal cavity could not be achieved despite numerous attempts and various techniques to do so. Closure Type: primary Specimen(s): none Estimated blood loss (mL): 30 Blood products transfused: none Procedure in detail: With the patient under satisfactory general anesthesia in the modified dorsal lithotomy position, the perineum, vagina, and abdomen prepped and draped for total laparoscopic hysterectomy. A pre-surgical safety time-out was then taken in accordance with [facility] Main OR protocols. A Collado catheter was inserted in the bladder. A bivalve speculum was inserted in the vagina and the cervix grasped with a single-tooth tenaculum. The endocervical canal was dilated to 6 mm and VCare uterine manipulator with a medium cup was then introduced into the uterine cavity. A #1 PDS was passed through the cervix for retrieval of the uterus following circumferential laparoscopic colpotomy. The patient was repositioned and preparations made for laparoscopy. A 1 cm vertical infraumbilical incision was then made and a long Veress needle was used to insufflate the abdominal cavity. Numerous attempts were to insufflate the abdominal cavity but pressures obtained at the time of insufflation indicated the tip the Veress needle was not truly within the abdominal cavity. Direct optical entry through a 5 mm trochar/sleeve was attempted without success using the longest available trachars/sleeve. Two attempts were also made to insufflate the abdomen at Roger's point without success. The decision was made to attempt open laparoscopy entry into the abdominal cavity and the umbilical incision was extended. Using S retractors, right angle vaginal retractors, and appendiceal retractors, exploration of the umbilical incision was carried out. The dissection was carried down sharply and bluntly to what was thought to be the anterior rectus fascia but neither insufflation with Veress needle or entry through the fascia could safely be performed due to the very deep incision and availability of deep instruments to be able to do so safely. After consideration of all options, the decision was made to abort the procedure as the patient had not been consented for open abdominal hysterectomy and in the presence of significant dysmenorrhea and minimal apical descent on exam, option of vaginal approach was deemed inappropriate in the setting with postoperative referral to a center with robotic surgery capabilities deemed best choice patient's well-being/recovery. Accordingly the attempted laparoscopy was aborted, and the subcutaneous tissues reapproximated with 0 Vicryl interrupted. The skin edges of the umbilical and roger's point incisions were closed with 4-0 Monocryl interrupted and appropriate dressings were applied. The patient was then awakened from anesthesia, VC are manipulator removed from the vagina, and the patient transferred to the PACU for a period of observation recovery having tolerated the procedure well. Complications: other (Unable to achieve safe, laparoscopic entry into the abdominal cavity therefore procedure aborted.) Post-operative Condition: stable Disposition: PACU Plan for aftercare: Routine postoperative care. Patient will be referred on expedited basis to a center with robotic hysterectomy capability. Follow-up will be 2 weeks following her surgery postop status check.
[2022-09-11] MEDS: OXYCODONE IR 5 MG TABLET PO (16:15)
== END 2022-09-11 17:21 | disposition home or self-care (01) ==
LOC: OR 11:26 → AC 11:26
PROVIDERS: PCP Family Medicine; Referring Provider Obstetrics & Gynecology; Visit Provider Obstetrics & Gynecology
PROC: 0UT94ZZ Resection of Uterus, Percutaneous Endoscopic Approach (ICD-10-PCS; CPT 58571; principal; 2022-09-11 13:15)
DX: N92.0 Excessive and frequent menstruation with regular cycle (principal); N94.6 Dysmenorrhea, unspecified; Z53.8 Procedure and treatment not carried out for other reasons
CPT/HCPCS: 58571; J0131; J0171; J0690; J1100; J1170; J1885; J2250; J2405; J2704; J3010

== ENCOUNTER → 2022-11-01 11:12 | Outpatient (CLI) | payer OTHER, MEDICAID, SELFPAY ==
[2022-11-01 12:02] LABS: Influenza A - CEPHEID Flu A NEGATIVE (NEGATIVE); Influenza B - CEPHEID Flu B NEGATIVE (NEGATIVE); Respiratory Syncytial Virus Negative (Negative)
[2022-11-01 12:34] LABS: COVID-19 CEPHEID 4-PLEX PCR Negative (Negative)
== END ==
PROVIDERS: PCP Family Medicine; Visit Provider Nurse Practitioner Family
DX: J02.9 Acute pharyngitis, unspecified (principal); R52 Pain, unspecified; R68.83 Chills (without fever)
CPT/HCPCS: 0241U; 87070; 87147

== ENCOUNTER → 2023-01-31 10:47 | Outpatient (CLI) | payer OTHER, SELFPAY | PROVIDERS: PCP Family Medicine; Referring Provider Family Medicine; Visit Provider Family Medicine | DX: Z23 Encounter for immunization (principal) | CPT/HCPCS: 90471; 90686 ==

== ENCOUNTER → 2023-06-05 16:24 | Outpatient (CLI) | payer OTHER, SELFPAY | PROVIDERS: PCP Family Medicine; Visit Provider Physician Assistant | DX: T14.8XXA Other injury of unspecified body region, initial encounter (principal) | CPT/HCPCS: 87070; 87075; 87077; 87147; 87186; 87205 ==

== ENCOUNTER → 2023-06-06 17:02 | Outpatient (CLI) | payer OTHER, SELFPAY ==
[2023-06-08 23:36] LABS: Deamidated Gliadin Ab IgA 4 units (0-19); Deamidated Gliadin Ab IgG 2 units (0-19); Immunoglobulin A,Qn 375 mg/dL (87-352); t-Transglutaminase IgA <2 U/mL (0-3)
[2023-06-12 04:01] LABS: Almond IgE <0.10 kU/L (Class 0); Cashew Nut IgE <0.10 kU/L (Class 0); Codfish Allergy IgE < 0.10 kU/L (Class 0); Egg White IgE <0.10 kU/L (Class 0); Hazelnut IgE <0.10 kU/L (Class 0); Milk IgE <0.10 kU/L (Class 0); Peanut IgE <0.10 kU/L (Class 0); Salmon Allergy IgE < 0.10 kU/L (Class 0); Scallop Allergy IgE < 0.10 kU/L (Class 0); Sesame seed Allergy IgE < 0.10 kU/L (Class 0); Shrimp IgE <0.10 kU/L (Class 0); Soybean IgE <0.10 kU/L (Class 0); Tuna Allergy IgE < 0.10 kU/L (Class 0); Walnut IgE <0.10 kU/L (Class 0); Wheat Allergy IgE < 0.10 kU/L (Class 0)
== END ==
PROVIDERS: PCP Family Medicine; Referring Provider Physician Assistant; Visit Provider Physician Assistant
DX: L40.50 Arthropathic psoriasis, unspecified (principal)
CPT/HCPCS: 36415; 82784; 83516; 86003

== ENCOUNTER 2024-02-15 16:40 | Emergency (ER) | payer OTHER, SELFPAY ==
[2024-02-15 16:45] VITALS: BP 147/85; PULSE 100; RESP 16; TEMP 36.6; O2SAT 96; BMI 48.4
[2024-02-15 17:57] LABS: Alanine Aminotransferase 37 IU/L (<35)
--- NOTE | 2024-02-15 18:23 | ED_ITS ---
<Statement entered by Feliz Hylton DO - 02/15/24 22:08> Dr. Hylton: I was immediately available in the department for consultation. Documentation has been reviewed. I agree with assessment and plan. HPI - General Adult General Chief complaint: Blood/Body fluid exposure Stated complaint: Needle stick injury Time Seen by Provider: 02/15/24 18:10 History of Present Illness HPI narrative: 28-year-old female presents to the emergency department for a needle stick to her right palm that occurred prior to arrival. 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 Source of exposure was a 6-month-old baby getting a vaccine, patient accidentally stuck herself after administering the vaccine. She is up-to-date on her tetanus vaccine and received all routine childhood vaccines including hepatitis-B. Denies any symptoms or other concerns. Exposure source (baby) not known or suspected to have any blood borne communicable diseases. Related Data Home Medications Medication Instructions Recorded Confirmed rizatriptan 10 mg tablet 10 mg PO ONCE 07/04/22 06/05/23 omeprazole 10 mg capsule,delayed 10 mg PO DAILY 09/11/22 06/05/23 release Previous Rx's Medication Instructions Recorded albuterol sulfate 90 mcg/actuation 2 puff inhalation Q4-6H PRN 10/11/21 aerosol inhaler shortness of breath or wheezing #8.5 grams ondansetron 8 mg disintegrating 8 mg PO Q8H PRN nausea and 09/11/22 tablet vomiting #10 tabs betamethasone dipropionate 0.05 % 1 applic topical DAILY PRN rash, 04/19/23 topical ointment itching #45 grams tacrolimus 0.1 % topical ointment 1 applic topical BID #60 grams 04/30/23 mupirocin 2 % topical ointment 1 applic topical TID #50 grams 06/07/23 citalopram 20 mg tablet 20 mg PO DAILY #90 tabs 09/25/23 nortriptyline 10 mg capsule 10 mg PO DAILY Migraines #90 caps 09/25/23 cephalexin 500 mg capsule 500 mg PO BID #14 caps 02/08/24 Allergies Allergy/AdvReac Type Severity Reaction Status Date / Time No Known Drug Allergies Allergy Verified 06/05/23 15:49 Review of Systems Review of Systems ROS Unobtainable: All systems reviewed & are unremarkable except as noted in HPI and below Patient History Medical History Segmental and somatic dysfunction of abdomen and other regions Sacral region somatic dysfunction Pelvic somatic dysfunction Lumbar region somatic dysfunction Thoracic region somatic dysfunction Cervical somatic dysfunction Cranial somatic dysfunction Chronic right-sided low back pain without sciatica Chronic neck pain COVID-19 Mood disorder Wears glasses Headache (~2006) Irregular menstrual cycle (~2016) Heavy menstrual period (~2016) Abnormal Pap smear of cervix (~2019) LGSIL (low grade squamous intraepithelial dysplasia) Migraine with aura (~2013) Blighted ovum (~2018) Obesity Infertility associated with anovulation (~2016) Surgical History Anesthesia History of colposcopy (~07/09/19) H/O wisdom tooth extraction (~09/2012) Family History Mother Diabetes mellitus Hypertension Anxiety Kidney stones Father No problems noted. Grandfather Diabetes mellitus Hypertension Myocardial infarction Status post cardiac surgery Grandmother Dementia Migraines Hyperlipidemia Hypertension Grandfather Known health problems: none Grandmother Hyperlipidemia Social History marital status: unmarried,living together household members: spouse education level: college occupational status: unemployed current occupational exposures/hazards: No Previous occupational history: Childcare Provider/Preschool and [employer] special live needs: No Smoking Status: Never smoker second hand exposure: No alcohol intake: former substance use type: does not use Smoking Status: Never smoker Substance Use Type: marijuana Exam Narrative Exam Narrative: GENERAL: 28 year old patient appears stated age. Well-developed patient, in no acute distress. HEAD: Atraumatic. Normocephalic. EYES: Extraocular motions intact. No scleral icterus. No injection or drainage. ENT: Nose without bleeding, purulent drainage. NECK: Trachea midline. CARDIOVASCULAR: Regular rate RESPIRATORY: Speaking in clear, full sentences. No respiratory distress. NEURO: AOx3. SKIN: Punctate, nonbleeding, needle-stick wound on right hand palm. Initial Vital Signs Initial Vital Signs: Vital Signs Temperature 97.8 F 02/15/24 16:45 Pulse Rate 100 H 02/15/24 16:45 Respiratory Rate 16 02/15/24 16:45 Blood Pressure 147/85 H 02/15/24 16:45 Pulse Oximetry 96 02/15/24 16:45 Oxygen Delivery Method Room Air 02/15/24 16:45 Course Vital Signs Vital signs: Vital Signs - 8 hr 02/15/24 16:45 02/15/24 19:13 Temperature 97.8 F Pulse Rate 100 H 84 Respiratory Rate 16 16 Blood Pressure 147/85 H 134/85 Pulse Oximetry 96 98 Oxygen Delivery Method Room Air Room Air Medical Decision Making Lab Data Labs: Lab Results 02/15/24 Range/Units 17:27 ALT 37 H (<35) IU/L Hep Bs Antigen Negative (NEGATIVE) s/c Hepatitis C Antibody Negative (NEGATIVE) s/c HIV 1&2 Ab/P24 Ag 4thGn Negative (NEGATIVE) MDM Narrative Medical decision making narrative: 28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 Source/exposure was a 6-month-old baby with no known or suspected communicable diseases. Pt UTD on TDap. Routine body fluid exposure labs were drawn including hepatitis-B antigen, hepatitis-B antibody, hepatitis-C antibody, HIV 1 and 2 antibody. After shared decision-making with the patient, we will not proceed with any prophylaxis for any communicable diseases at this time. We discussed proper wound care of the right palm needle stick injury. Discussed signs and symptoms of infection. Stressed the importance of following up with employee health for further management. All questions answered. Patient is stable for discharge. Discharge Plan Departure Patient Disposition: Home Clinical Impression: Needlestick injury accident, Puncture wound of right hand due to needle stick Instructions: DI for Accidental Exposure to Body Fluids Activity Restrictions/Additional Instructions: Please keep wound clean, dry, covered and follow up with employee health. Return to ER for any concerns. Prescriptions: No Action cephalexin 500 mg capsule 500 mg PO BID Qty: 14 0RF albuterol sulfate 90 mcg/actuation HFA aerosol inhaler 2 puff inhalation Q4-6H PRN (Reason: shortness of breath or wheezing) Qty: 8.5 0RF betamethasone dipropionate 0.05 % ointment 1 applic topical DAILY PRN (Reason: rash, itching) Qty: 45 0RF mupirocin 2 % ointment 1 applic topical TID Qty: 50 0RF citalopram 20 mg tablet 20 mg PO DAILY Qty: 90 1RF nortriptyline 10 mg capsule 10 mg PO DAILY Qty: 90 1RF tacrolimus 0.1 % ointment 1 applic topical BID Qty: 60 1RF rizatriptan 10 mg tablet 10 mg PO ONCE Rx Instructions: as a single dose omeprazole 10 mg Capsule,Delayed Release(Dr/Ec) 10 mg PO DAILY ondansetron 8 mg tablet,disintegrating 8 mg PO Q8H PRN (Reason: nausea and vomiting) Qty: 10 0RF Referrals: Victoriano Haney MD [Primary Care Provider] - Stand Alone Forms: Patient Portal/API/Survey
[2024-02-15 18:36] LABS: Hepatitis B Surface Antigen NEGATIVE s/c (NEGATIVE)
[2024-02-15 18:48] LABS: HIV 1 & 2 Ab/Ag 4th Gen Combo NEGATIVE (NEGATIVE); Hep C Virus Ab w/Reflex Quant NEGATIVE s/c (NEGATIVE)
[2024-02-15 19:13] VITALS: BP 134/85; PULSE 84; RESP 16; O2SAT 98
[2024-02-18 08:39] LABS: Hepatitis B Surf Ab Qualitativ Reactive (.)
== END 2024-02-15 19:16 | disposition home or self-care (01) ==
PROVIDERS: Emergency Medicine; Emergency Provider Physician Assistant; PCP Family Medicine
DX: S61.431A Puncture wound without foreign body of right hand, initial encounter (principal); W46.0XXA Contact with hypodermic needle, initial encounter
CPT/HCPCS: 99281

== ENCOUNTER → 2024-03-27 09:27 | Outpatient (CLI) | payer OTHER, SELFPAY ==
[2024-03-27 09:59] LABS: Hemoglobin 13.8 g/dL (12.0-16.0); Mean Corpuscular HGB Conc 32.8 % (30-36); Mean Corpuscular Hemoglobin 28.7 PG (26-34); Mean Corpuscular Volume 87.7 fL (80-100); Platelet Count 262 X10^3/uL (150-400); Red Cell Distribution Width 13.8 % (11.6-14.8); White Blood Cell Count 5.6 X10^3/uL (4.5-11.0)
[2024-03-27 10:05] LABS: Hemoglobin A1C% w Est Avg Glu 5.1 % (4.0-6.0)
[2024-03-27 10:18] LABS: BUN Creatinine Ratio 15.4 (6-22); Blood Urea Nitrogen 12 mg/dL (7-17); Calcium 9.3 mg/dL (8.4-10.2); Carbon Dioxide 27 mmol/L (22-32); Chloride 104 mmol/L (98-107); Cholesterol 203 mg/dL (140-199); Estimated Glomerular Filt Rate > 60 mL/min (>60); Glucose 105 mg/dL (70-100); HDL Cholesterol 91 mg/dL (40-60); HEMOLYSIS < 15 (0-50); LDL Cholesterol Calculated 89 mg/dL (<100); Potassium 4.2 mmol/L (3.4-5.1); Sodium 137 mmol/L (137-145); Triglycerides 113 mg/dL (35-150)
[2024-03-27 10:49] LABS: Cortisol AM (Before 10AM) 9.54 ug/dL (4.46-22.7)
[2024-03-27 10:50] LABS: TSH w/ Reflex to FT4 0.67 uIU/mL (0.47-4.68)
== END ==
PROVIDERS: PCP Nurse Practitioner Family; Referring Provider Nurse Practitioner Family; Visit Provider Nurse Practitioner Family
DX: R53.83 Other fatigue (principal); E66.01 Morbid (severe) obesity due to excess calories; E28.2 Polycystic ovarian syndrome; G43.109 Migraine with aura, not intractable, without status migrainosus; L40.9 Psoriasis, unspecified; R73.01 Impaired fasting glucose; Z68.42 Body mass index [BMI] 45.0-49.9, adult
CPT/HCPCS: 36415; 80048; 80061; 82533; 83036; 84443; 85027

== ENCOUNTER → 2024-11-19 15:18 | Outpatient (CLI) | payer OTHER, SELFPAY | PROVIDERS: PCP Nurse Practitioner Family; Referring Provider Nurse Practitioner Family; Visit Provider Nurse Practitioner Family | DX: Z20.2 Contact with and (suspected) exposure to infections with a predominantly sexual mode of transmission (principal) | CPT/HCPCS: 36415; 86592 ==

== ENCOUNTER 2024-12-19 21:17 | Emergency (ER) | payer OTHER, SELFPAY ==
[2024-12-19 21:23] VITALS: BP 145/92; PULSE 107; RESP 20; TEMP 37; O2SAT 95; BMI 50.0
[2024-12-19 22:03] LABS: Add Manual Diff / Slide Review NO; Hematocrit 40.9 % (36-46); Hemoglobin 13.9 g/dL (12.0-16.0); Lymphocytes Absolute Auto 2100 /uL (1100-4500); Mean Corpuscular HGB Conc 34.0 % (30-36); Mean Corpuscular Hemoglobin 29.4 PG (26-34); Mean Corpuscular Volume 86.6 fL (80-100); Platelet Count 219 X10^3/uL (150-400)
[2024-12-19] MEDS: ONDANSETRON 4 MG/2 ML INJ IV (22:04)
[2024-12-19 22:05] LABS: Alanine Aminotransferase 47 IU/L (<35); Albumin 4.3 g/dL (3.5-5.0); Albumin Globulin Ratio 1.1 (1.0-2.8); Alkaline Phosphatase 84 U/L (38-126); Blood Urea Nitrogen 14 mg/dL (7-17); Calcium 9.6 mg/dL (8.4-10.2); Carbon Dioxide 27 mmol/L (22-32); Chloride 104 mmol/L (98-107); Estimated Glomerular Filt Rate > 60 mL/min (>60); Globulin 4.0 g/dL (1.7-4.1); Glucose 114 mg/dL (70-99); HEMOLYSIS < 15 (0-50); Potassium 3.7 mmol/L (3.4-5.1); Sodium 140 mmol/L (137-145); Total Protein 8.3 g/dL (6.3-8.2)
[2024-12-19 22:26] VITALS: PULSE 91; O2SAT 96
[2024-12-19 22:27] VITALS: BP 124/59; PULSE 88; O2SAT 96
[2024-12-19 22:30] VITALS: PULSE 85; O2SAT 97
[2024-12-19 23:00] VITALS: PULSE 83; O2SAT 96
[2024-12-19 23:30] VITALS: PULSE 96; O2SAT 100
--- NOTE | 2024-12-19 23:31 | ED.WOUNDLAC ---
HPI - Wound/Laceration General Chief Complaint: Wound/Laceration Stated Complaint: infection in lt leg, sent by pcp Time Seen by Provider: 12/19/24 23:00 Source: patient Mode of arrival: Ambulatory History of Present Illness HPI narrative: 29-year-old female currently on oral doxycycline day 2 for left lower extremity cellulitis, she had outlined of the surrounding central deeper red portion, and outer larger pink erythematous portion, since taking the doxycycline there some spreading of the pink coloration beyond the borders a few mm only. He does not feel feverish. She can move her knee and ankle. No puncture or bite wound recalled, possible recent ingrown hair. Earlier seemed to have some drainage that seemed to have stopped. Related Data Home Medications ?Medication ?Instructions ?Recorded ?Confirmed famotidine 20 mg tablet (Heartburn 20 mg PO DAILY 03/26/24 12/18/24 Relief (famotidine)) Previous Rx's ?Medication ?Instructions ?Recorded rizatriptan 10 mg tablet 10 mg PO ONCE PRN migraine 03/26/24 headache #10 tabs ondansetron 8 mg disintegrating 8 mg PO Q8H PRN nausea and 08/01/24 tablet vomiting #10 tabs nortriptyline 10 mg capsule 10 mg PO DAILY for migraine #90 10/30/24 caps bupropion HCl 300 mg 24 hr tablet, 300 mg PO DAILY #30 tabs 11/18/24 extended release doxycycline hyclate 100 mg tablet 100 mg PO BID 7 days #14 tabs 12/18/24 cephalexin 500 mg capsule 500 mg PO QID 7 days #28 caps 12/20/24 cephalexin 500 mg capsule 500 mg PO QID 7 days #28 caps 12/20/24 Allergies Allergy/AdvReac Type Severity Reaction Status Date / Time No Known Drug Allergies Allergy Verified 07/30/24 13:28 Patient History Medical History (Updated 12/20/24 @ 02:26 by Troy Grove MD) Eczema Dysmenorrhea, unspecified Menorrhagia with irregular cycle Impaired fasting glucose Psoriasis with arthropathy Psoriasis Ingrown nail of great toe of left foot Ingrown nail of great toe of right foot Segmental and somatic dysfunction of abdomen and other regions Sacral region somatic dysfunction Pelvic somatic dysfunction Lumbar region somatic dysfunction Thoracic region somatic dysfunction Cervical somatic dysfunction Cranial somatic dysfunction Chronic right-sided low back pain without sciatica Chronic neck pain COVID-19 Mood disorder Wears glasses Headache (~2006) Irregular menstrual cycle (~2017) Heavy menstrual period (~2017) Abnormal Pap smear of cervix (~2019) LGSIL (low grade squamous intraepithelial dysplasia) Migraine with aura (~2013) Blighted ovum (~2018) Obesity Infertility associated with anovulation (~2016) Surgical History Anesthesia History of colposcopy (~07/09/19) H/O wisdom tooth extraction (~09/2012) Family History Mother Diabetes mellitus Hypertension Anxiety Kidney stones Father No problems noted. 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 HEAD: Atraumatic. Normocephalic. EYES: Pupils equal round and reactive. Extraocular motions intact. No scleral icterus. No injection or drainage. ENT: Nose without bleeding, purulent drainage. Throat without erythema, tonsillar hypertrophy or exudate. Airway patent. NECK: Trachea midline. Non tender CARDIOVASCULAR: Regular rate and rhythm without murmurs, gallops, or rubs. RESPIRATORY: Clear to auscultation. Breath sounds equal bilaterally. No wheezes, rales, or rhonchi. GASTROINTESTINAL: Abdomen soft, non-tender, nondistended. EXTREMITIES: Left lower extremity with anterior large area 20 x 25 cm erythema, central area of deeper redness proximally 8 cm diameter, no expressible fluid or crepitance. Can plantar flex and dorsiflex at her ankle foot. No knee tenderness or effusion. BACK: Nontender without deformity or crepitance. No flank tenderness. NEURO: AOx3. Motor functions grossly nonfocal. SKIN: No rash or erythema of visible areas Initial Vital Signs Initial Vital Signs: Vital Signs Temperature 98.6 F 12/19/24 21:23 Pulse Rate 107 H 12/19/24 21:23 Respiratory Rate 20 12/19/24 21:23 Blood Pressure 145/92 H 12/19/24 21:23 Pulse Oximetry 95 12/19/24 21:23 Oxygen Delivery Method Room Air 12/19/24 21:23 Course Orders Ordered: ED Orders 12/19/24 21:41 CBC Auto Diff [Complete Blood Count AUTO DIFF] Stat CMP [Comprehensive Metabolic Panel] Stat 12/19/24 21:46 HCG Quantitative /Beta subunit Stat Lactate (Lactic Acid) Stat Procalcitonin Stat 12/19/24 23:32 XR tibia fibula LT 2V Stat 12/19/24 23:45 Ictotest Urine Stat Urinalysis and Microscopic Stat 12/19/24 23:56 Blood Culture Stat Discontinued Medications Acetaminophen (Acetaminophen 325 Mg Tablet) 975 mg PO NOW ONE Stop: 12/20/24 01:05 Last Admin: 12/20/24 01:22 Dose: 975 mg Documented By: LILA Vancomycin HCl 2,000 mg/ (Sodium Chloride) 500 mls @ 250 mls/hr IV NOW ONE Stop: 12/19/24 23:33 Last Admin: 12/20/24 00:41 Dose: Not Given Documented By: LILA Ceftriaxone Sodium 1,000 mg/ (Sodium Chloride) 100 mls @ 200 mls/hr IV NOW ONE Stop: 12/19/24 23:33 Last Infusion: 12/20/24 00:39 Dose: Infused Documented By: Admin: 12/20/24 00:08 Dose: 200 mls/hr Documented By: LILA Sodium Chloride (Normal Saline 0.9%) 1,000 mls @ 1,000 mls/hr IV BOLUS ONE Stop: 12/20/24 00:37 Last Infusion: 12/20/24 01:21 Dose: Infused Documented By: Admin: 12/20/24 00:07 Dose: 1,000 mls/hr Documented By: LILA Vancomycin HCl/Dextrose (Vancomycin) 2,000 mg in 400 mls @ 200 mls/hr IV NOW ONE Stop: 12/20/24 02:19 Last Infusion: 12/20/24 02:47 Dose: Infused Documented By: Admin: 12/20/24 00:39 Dose: 200 mls/hr Documented By: LILA Ondansetron HCl (Ondansetron 4 Mg/2 Ml Inj) 4 mg IV NOW PRN PRN Reason: Nausea And Vomiting Last Admin: 12/19/24 22:04 Dose: 4 mg Documented By: EMILE Vital Signs Vital signs: Vital Signs - 8 hr 12/19/24 21:23 12/19/24 22:26 12/19/24 22:27 Temperature 98.6 F Pulse Rate 107 H 91 H Respiratory Rate 20 Blood Pressure 145/92 H 124/59 L Pulse Oximetry 95 96 Oxygen Delivery Method Room Air 12/19/24 22:27 12/19/24 22:30 12/19/24 23:00 Temperature Pulse Rate 88 85 83 Respiratory Rate Blood Pressure Pulse Oximetry 96 97 96 Oxygen Delivery Method 12/19/24 23:30 12/20/24 00:06 12/20/24 00:07 Temperature Pulse Rate 96 H 90 Respiratory Rate 19 Blood Pressure 117/68 Pulse Oximetry 100 98 Oxygen Delivery Method 12/20/24 00:07 12/20/24 00:30 12/20/24 00:30 Temperature Pulse Rate 89 83 Respiratory Rate 18 23 Blood Pressure 121/65 Pulse Oximetry 97 95 Oxygen Delivery Method 12/20/24 01:00 12/20/24 01:00 12/20/24 01:30 Temperature Pulse Rate 87 Respiratory Rate 20 Blood Pressure 126/64 119/65 Pulse Oximetry 94 Oxygen Delivery Method 12/20/24 01:30 12/20/24 02:00 12/20/24 02:00 Temperature Pulse Rate 86 90 Respiratory Rate 18 20 Blood Pressure 118/62 Pulse Oximetry 95 94 Oxygen Delivery Method 12/20/24 02:30 12/20/24 02:30 Temperature Pulse Rate 88 Respiratory Rate 20 Blood Pressure 134/66 Pulse Oximetry 98 Oxygen Delivery Method Room Air MDM - Wound/Laceration Lab Data Attestation: I reviewed the patient's lab results. Lab results narrative: White blood cell count 9400, hemoglobin 13.9, platelets adequate. Glucose 114. Renal function, serum CO2, electrolytes unremarkable. Mild transaminitis with normal T bili and alkaline phosphatase. 12/19/24 21:41 12/19/24 21:41 Labs: Lab Results 09/12/25 09/12/25 09/12/25 Range/Units 21:41 21:46 23:45 WBC 9.4 (4.5-11.0) X10^3/uL RBC 4.73 (4.0-5.2) X10^6/uL Hgb 13.9 (12.0-16.0) g/dL Hct 40.9 (36-46) % MCV 86.6 (80-100) fL MCH 29.4 (26-34) PG MCHC 34.0 (30-36) % RDW 14.4 (11.6-14.8) % Plt Count 219 (150-400) X10^3/uL Neut % (Auto) 68.6 (50-75) % Lymph % (Auto) 21.9 L (25-40) % [place] % (Auto) 7.3 (3-14) % Eos % (Auto) 1.8 L (2-4) % Baso % (Auto) 0.4 (0-2) % Neut # (Auto) 6500 (7431-8445) /uL Lymph # (Auto) 2100 (9841-2254) /uL [place] # (Auto) 700 (0-900) /uL Eos # (Auto) 200 (0-450) /uL Baso # (Auto) 0 (0-100) /uL Sodium 140 (137-145) mmol/L Potassium 3.7 (3.4-5.1) mmol/L Chloride 104 (98-107) mmol/L Carbon Dioxide 27 (22-32) mmol/L BUN 14 (7-17) mg/dL Creatinine 0.86 (0.52-1.04) mg/dL Estimated GFR > 60 (>60) mL/min BUN/Creatinine Ratio 16.3 (6-22) Glucose 114 H (70-99) mg/dL Lactate 1.5 (0.7-2.1) mmol/L Calcium 9.6 (8.4-10.2) mg/dL Total Bilirubin 0.4 (0.2-1.3) mg/dL AST 37 H (14-36) IU/L ALT 47 H (<35) IU/L Alkaline Phosphatase 84 (38-126) U/L Total Protein 8.3 H (6.3-8.2) g/dL Albumin 4.3 (3.5-5.0) g/dL Globulin 4.0 (1.7-4.1) g/dL Albumin/Globulin Ratio 1.1 (1.0-2.8) Procalcitonin 0.046 (<0.5) ng/mL HCG, Quant < 2.39 mIU/mL Urine Color Dark yellow Urine Appearance Clear Urine pH 6.0 (4.5-8.0) Ur Specific [place] 1.025 (1.000-1.035) Urine Protein Trace H (Negative) Urine Glucose (UA) Negative (Negative) g/dL Urine Ketones 1+ H (NEGATIVE) Urine Occult Blood Negative (Negative) Urine Nitrate Negative (Negative) Urine Bilirubin 1+ H (NEGATIVE) Ur Bilirubin Confirm Negative (Negative) Urine Urobilinogen 1.0 (0.2) E.U./dL Ur Leukocyte Esterase Negative (NEGATIVE) Urine RBC 0-1/hpf (0-5/HPF) Urine WBC 1-5/hpf (0-5/HPF) Ur Squamous Epith Cells 5-10 /hpf H (0-5/HPF) Urine Bacteria Few (2-10) H (None) Urine Mucus 2+ H (Negative) Ur Culture Indicated? Cult not indicated Vol Urine Centrifuged 10ml (spun) Imaging Data Extremity x-ray #1: Radiologist's Impression: [place] [address] XRay Report Signed Patient: Stephie Romero MR#: [id number] : 1995 Acct:[id number] Age/Sex: 29 / F Date of Service: 12/19/24 Loc: ED Accession Number: [id number] Procedure: XR tibia fibula LT 2V Ordering Provider: Troy Grove MD PROCEDURE: XR TIBIA FIBULA LT 2V INDICATIONS: redness worse on PO abx, eval for osteo TECHNIQUE: 2 views of the tibia and fibula were acquired. COMPARISON: None. FINDINGS: Bones: No fractures or dislocations. No suspicious bony lesions. Soft tissues: No suspicious soft tissue calcifications or masses. IMPRESSION: No visualized suspicious lesions to suggest osteomyelitis. Dictated by: Nancy Hayward M.D. on 12/20/2024 at 0:01 Approved by: Nancy Hayward M.D. on 12/20/2024 at 0:01 [facility] Narrative Medical decision making narrative: 29-year-old with left lower extremity anterior cellulitis on oral doxycycline day 2, some spreading of the rolled glass crosscutter pink coloration be on drawn border edge from this morning, otherwise hemodynamically stable, no crepitance, no expressible fluid, no fluctuance. Initial tachycardia, no fever. We will send labs including inflammatory markers. IV vancomycin, IV ceftriaxone. Oral Tylenol for pain control. White blood cell count, procalcitonin, lactate levels normal. We discussed admission, she would like to be treated as outpatient for now, this seems reasonable, inflammatory markers reassuring. We will add cephalexin to her ongoing doxycycline. Wound check with PCP clinic on Sunday in 2 days advised. Return precautions discussed. Discharged home. Discharge Plan Departure Patient Disposition: Home Clinical Impression: Cellulitis Instructions: DI for Cellulitis -- Adult Activity Restrictions/Additional Instructions: Recent left lower extremity infection cellulitis, having started oral doxycycline antibiotic, persisting pain, slight increase in redness that was outlined from yesterday. No fever on triage, initial fast heart rate improved after IV fluids, also given Tylenol. IV vancomycin and ceftriaxone antibiotics given in the emergency department. X-ray showed no osteomyelitis underlying bone infection changes. Blood testing was reassuring, no elevated white blood cell count or procalcitonin or lactate or other inflammatory markers. Trial of further antibiotics as an outpatient for now, continue your doxycycline, we will add cephalexin oral antibiotic. Recheck with your regular doctor on Sunday. Return to this/nearest emergency department for any change worsening symptoms or any concerns prior. Prescriptions: New cephalexin 500 mg capsule 500 mg PO QID 7 Days Qty: 28 0RF cephalexin 500 mg capsule 500 mg PO QID 7 Days Qty: 28 0RF No Action bupropion HCl 300 mg tablet extended release 24 hr 300 mg PO DAILY Qty: 30 1RF ondansetron 8 mg tablet,disintegrating 8 mg PO Q8H PRN (Reason: nausea and vomiting) Qty: 10 0RF nortriptyline 10 mg capsule 10 mg PO DAILY Qty: 90 1RF famotidine [Heartburn Relief (famotidine)] 20 mg tablet 20 mg PO DAILY rizatriptan 10 mg tablet 10 mg PO ONCE PRN (Reason: migraine headache) Qty: 10 0RF Rx Instructions: as a single dose doxycycline hyclate 100 mg tablet 100 mg PO BID 7 Days Qty: 14 0RF Referrals: Deanna Berg, FACILITIES TECHNICIAN-BC [Primary Care Provider, Family Practice] Stand Alone Forms: Patient Portal/API
[2024-12-20] VITALS (7 sets, daily range): BP systolic 117–134; BP diastolic 62–68; PULSE 83–90; RESP 18–23; O2SAT 94–98
[2024-12-20 00:07] LABS: Lactate (Lactic Acid) 1.5 mmol/L (0.7-2.1)
[2024-12-20] MEDS: SODIUM CHLORIDE 0.9% 1,000 ML 1000 ML IV (00:07)
[2024-12-20 00:15] LABS: Appearance Urine UA CLEAR; Bilirubin Urine UA 1+ (NEGATIVE); Color Urine UA Dark Yellow; Glucose Urine UA NEGATIVE (Negative); Ketones Urine UA 1+ (NEGATIVE); Leukocyte Esterase Urine UA NEGATIVE (NEGATIVE); Nitrite Urine UA NEGATIVE (Negative); Occult Blood Urine UA NEGATIVE (Negative); Protein Urine UA TRACE (Negative); Specific Gravity Urine UA 1.025 (1.000-1.035); Urobilinogen Urine UA 1.0 E.U./dL (0.2); pH Urine UA 6.0 (4.5-8.0)
[2024-12-20 00:18] LABS: Ictotest Urine Negative (Negative)
[2024-12-20 00:23] LABS: Culture Indicated Urine Cult Not Indicated
[2024-12-20 00:25] LABS: HCG Quantitative /Beta subunit < 2.39 mIU/mL; Procalcitonin 0.046 ng/mL (<0.5)
[2024-12-20] MEDS: VANCOMYCIN 2,000 MG/400 ML PIGGYBACK 200 MG IV (00:39)
[2024-12-20] MEDS: ACETAMINOPHEN 325 MG TABLET 975 MG PO (01:22)
== END 2024-12-20 02:52 | disposition home or self-care (01) ==
PROVIDERS: Emergency Medicine; Emergency Provider Emergency Medicine; PCP Nurse Practitioner Family
DX: L03.116 Cellulitis of left lower limb (principal)
CPT/HCPCS: 36415; 73590; 80053; 81001; 81003; 83605; 84145; 84702; 85025; 87040; 96365; 96366; 96367; 96375; 99284; J0696; J2405; J3372

== ENCOUNTER → 2025-01-01 10:58 | Outpatient (CLI) | payer OTHER, SELFPAY | LOC: WC 11:24 | PROVIDERS: Family Provider Nurse Practitioner Family; PCP Nurse Practitioner Family; Referring Provider Physician Assistant; Visit Provider Surgery | DX: L97.822 Non-pressure chronic ulcer of other part of left lower leg with fat layer exposed (principal); L03.116 Cellulitis of left lower limb | CPT/HCPCS: 11042; 87070; 87075; 87205; 99203; 99214 ==

== ENCOUNTER → 2025-01-08 14:15 | Outpatient (CLI) | payer OTHER, SELFPAY | LOC: WC 14:15 | PROVIDERS: Family Provider Nurse Practitioner Family; PCP Nurse Practitioner Family; Referring Provider Nurse Practitioner Family; Visit Provider Surgery | DX: L30.9 Dermatitis, unspecified (principal); L97.222 Non-pressure chronic ulcer of left calf with fat layer exposed | CPT/HCPCS: 11042 ==

== ENCOUNTER → 2025-01-15 10:29 | Outpatient (CLI) | payer OTHER, SELFPAY | LOC: WC 10:33 | PROVIDERS: Family Provider Nurse Practitioner Family; PCP Nurse Practitioner Family; Referring Provider Nurse Practitioner Family; Visit Provider Surgery | DX: L97.822 Non-pressure chronic ulcer of other part of left lower leg with fat layer exposed (principal); L30.9 Dermatitis, unspecified | CPT/HCPCS: 11042 ==

== ENCOUNTER → 2025-01-22 09:49 | Outpatient (CLI) | payer OTHER, SELFPAY | LOC: WC 09:50 | PROVIDERS: PCP Nurse Practitioner Family; Referring Provider Nurse Practitioner Family; Visit Provider Physician Assistant | DX: L97.822 Non-pressure chronic ulcer of other part of left lower leg with fat layer exposed (principal); L30.9 Dermatitis, unspecified; R60.0 Localized edema | CPT/HCPCS: 11042; 99213 ==

== ENCOUNTER → 2025-01-30 10:02 | Outpatient (CLI) | payer OTHER, SELFPAY | LOC: WC 10:03 | PROVIDERS: PCP Nurse Practitioner Family; Referring Provider Nurse Practitioner Family; Visit Provider Physician Assistant | DX: L20.82 Flexural eczema (principal); R60.0 Localized edema | CPT/HCPCS: 99212; 99213 ==

== ENCOUNTER → 2025-03-03 13:01 | Outpatient (CLI) | payer OTHER, SELFPAY ==
--- NOTE | 2025-03-03 16:56 | DIET.OUTPTC ---
Dietary Outpatient Consult Consult Date:03/03/25 Assessment:? 30 y F referred to dietitian for obesity, BMI 50.0-59.9, binge eating disorder, mild Working with therapy and psych as well. Hx of purging since 2nd grade, does not anymore. Hx of binge eating since young age. Goes periods of time (1-2 weeks) of not having appetite not interested in food and consequently low PO intakes followed by a month or 2 of multiple binge eating episodes occurring weekly. Is currently monitoring foods/binge/time/feeling per with therapist. GI symptoms: Nausea w/ migraines, migraines possibly being triggered when not eating for period of a time; reflex- waking up in night with choking; D/C on and off but suspects related to medication - will kl[place]ah back to BMs at later visit Diet Recall: See above Schedule on work days If having breakfast will do around 930am, can't do earlier- common items include bagels and butter, oatmeal with yogurt/milk/nuts/seeds, leftovers from dinner If having lunch 1-3pm- common is sandwiches, salads from bistro, soups, leftovers, cheese stick and deli meat Dinner is 7-10pm- eats this meal 80% of time, most consistent meal; cooks for family so pro, carb, veg On weekends it is either lunch, grazing on snacks, dinner and on sunday does brunch, grazing on snacks, dinner Fluids:When not at work some difficulty getting adequate fluid intake, possible headaches r/t fluids 01/28/2511:01 Height 5 ft 6 in Weight 310 lb BMI 50.0 Activity:not discussed at this visit Pertinent Labs:reviewed, but not discussed in visit Nutrition Diagnosis:? Disordered eating pattern r/t inconsistent PO intakes followed by periods of overeating aeb food recall with 1-2 weeks low PO intakes followed by increased frequency of binge eating Interventions:? Discussed and provided appropriate resources on the following: -Consistent PO intakes, not going longer than 4 hours within pt's scheduled eating windows (930a-10p) without eating Establish daily breakfast, lunch, dinner, snack PRN -Balanced meals- including protein, carb, fiber, fat at each eating time -Hunger fullness scale, establishing consistent intakes to regain internal hunger cues -Protein goal -Brainstormed meals options Goals: -Consistent food intake - breakfast, lunch, snack, dinner -food options that were brainstormed were written down and provided to pt including options when not feeling as hungry/nausea -Can do my binge eating worksheet to help understand patterns/triggers/post binge EER:? 75 g protein, 25-30 g fiber Monitoring/Evaluations:? F/u in 3-4 wks Electronically Signed by: Lucie Boone Clinical Dietitian [address] [id number]
== END ==
LOC: DIET 13:02
PROVIDERS: PCP Nurse Practitioner Family; Referring Provider Nurse Practitioner Family
DX: E66.9 Obesity, unspecified (principal); Z68.43 Body mass index [BMI] 50.0-59.9, adult; Z71.3 Dietary counseling and surveillance; F50.810 Binge eating disorder, mild
CPT/HCPCS: 97802

== ENCOUNTER → 2025-03-17 10:52 | Outpatient (CLI) | payer OTHER, SELFPAY ==
--- NOTE | 2025-03-20 10:47 | DIET.OUTPTC ---
Dietary Outpatient Consult Consult Date:03/17/25 Assessment:? 30 y F referred to dietitian for obesity, BMI 50.0-59.9, binge eating disorder, mild Working on consistent meals. Meal plan/ideas discussed in previous session has been helpful, but returning to work soon so potential barriers may come up preventing consistent intakes, e.g. getting busy, eating at desk/non-intentional eating, getting home later/not having time for preparing full dinner Wants to continue to focus on getting adequate nutrients/vitamins and minerals values of food to help promote better relationship with food. Noting some nausea she wants to discuss with PCP. Taking acid reflux meds at night over with dinner now. Diet Recall: B-yogurt or protein shake L-leftovers D-homemade meal 01/28/2511:01 Height 5 ft 6 in Weight 310 lb BMI 50.0 Activity:not discussed at this visit Pertinent Labs:reviewed, but not discussed in visit Nutrition Diagnosis:? Disordered eating pattern r/t inconsistent PO intakes followed by periods of overeating aeb food recall with 1-2 weeks low PO intakes followed by increased frequency of binge eating Interventions:? Discussed and provided appropriate resources on the following: -Discussed barriers with consistent eating upon return to work and problem solving/brainstorming Goals: -Consistent food intake - breakfast, lunch, snack, dinner -Crock-pot meals for dinner when work starts -Snack between dinner and lunch when work starts EER:? 75 g protein, 25-30 g fiber Monitoring/Evaluations:? F/u in 3 wks Electronically Signed by: Lucie Boone Clinical Dietitian [address] [id number]
== END ==
PROVIDERS: PCP Nurse Practitioner Family; Referring Provider Nurse Practitioner Family
DX: E66.9 Obesity, unspecified (principal); F50.810 Binge eating disorder, mild; Z68.43 Body mass index [BMI] 50.0-59.9, adult
CPT/HCPCS: 97803